=== PATIENT | male | born 1990 | race Caucasian/White ===

== ENCOUNTER 2017-05-14 08:09 | Emergency (ER) | payer SELFPAY ==
[2017-05-14 08:27] VITALS: BP 150/92
[2017-05-14] MEDS ORDERED: Ketorolac 30 MG/ML SDV IM ONE (08:35)
--- NOTE | 2017-05-14 08:37 | EDM.PDOC ---
ED HPI GENERAL MEDICAL PROBLEM - General Chief Complaint: Lower Extremity Injury/Pain Stated Complaint: KNEE PROBLEMS Time Seen by Provider: 05/14/17 08:30 Source of Information: Reports: Patient History Limitations: Reports: No Limitations - History of Present Illness INITIAL COMMENTS - FREE TEXT/NARRATIVE: Patient comes in with pain to the right knee. He has an old work injury to his right leg. He has had multiple surgeries to his right femur. He fell on it last night going up some stairs. He states he has tried some ice and tylenol to little effect. No ibuprofen. 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 [No Known Home Meds] 05/14/17 [History] Review of Systems - Review of Systems Review Of Systems: See Below Constitutional: Reports: No Symptoms Eyes: Reports: No Symptoms Ears: Reports: No Symptoms Nose: Reports: No Symptoms Mouth/Throat: Reports: No Symptoms Respiratory: Reports: No Symptoms Cardiovascular: Reports: No Symptoms GI/Abdominal: Reports: No Symptoms Genitourinary: Reports: No Symptoms Musculoskeletal: Reports: Leg Pain (right knee/thigh) Skin: Reports: No Symptoms Neurological: Reports: No Symptoms Psychiatric: Reports: No Symptoms ED EXAM, GENERAL - Physical Exam Exam: See Below Exam Limited By: No Limitations General Appearance: Alert, WD/WN, Mild Distress Eye Exam: Bilateral Eye: EOMI, PERRL Head: Atraumatic, Normocephalic Extremities: Normal Inspection, No Pedal Edema, Normal Capillary Refill, Leg Pain, Limited Range of Motion. No: Joint Swelling Neurological: Alert, Oriented, CN II-XII Intact, Normal Cognition, Normal Gait, Normal Reflexes, No Motor/Sensory Deficits Psychiatric: Normal Affect, Normal Mood Skin Exam: Warm, Dry, Intact, Normal Color, No Rash Lymphatic: No Adenopathy Course - Vital Signs Last Recorded V/S: Last Vital Signs Temp 37.6 C 05/14/17 08:10 Pulse 101 H 05/14/17 08:10 Resp 18 05/14/17 08:10 BP 150/92 H 05/14/17 08:10 Pulse Ox - Orders/Labs/Meds Orders: Active Orders 24 hr Category Date Time Status Knee Min 4V Rt [CR] Stat Exams 05/14/17 08:35 Taken Meds: Medications Discontinued Medications Generic Name Dose Route Start Last Admin Trade Name Viv PRN Reason Stop Dose Admin Ketorolac Tromethamine 30 mg 05/14/17 08:35 05/14/17 08:45 Toradol IM 05/14/17 08:36 30 mg ONETIME ONE Administration Departure - Departure Time of Disposition: 09:50 Disposition: Home, Self-Care 01 Condition: Good Clinical Impression: Right knee sprain - Discharge Information Instructions: Knee Sprain, [id number] Referrals: PCP,Not In Area [Primary Care Provider] - Forms: ED Department Discharge Additional Instructions: Rest, ice, and elevate your knee. After a few days you can use some heat to help with the pain. Your x-ray was negative for any acute fracture, no unseating of your hardware. You can alternate ibuprofen and tylenol as needed. If the pain from this persists, an MRI may be needed to rule out muscle, ligament, or tendon damage. Follow up with your primary doctor as symptoms warrant. - Problem List & Annotations (1) Right knee sprain SNOMED Code(s): 04138505 Code(s): S83.91XA - SPRAIN OF UNSPECIFIED SITE OF RIGHT KNEE, INITIAL ENCOUNTER Status: Acute Priority: Low Qualifiers: Encounter type: initial encounter Involved ligament of knee: unspecified ligament Qualified Code(s): S83.91XA - Sprain of unspecified site of right knee, initial encounter - Problem List Review Problem List Initiated/Reviewed/Updated: Yes - My Orders Last 24 Hours: My Active Orders 05/14/17 08:35 Knee Min 4V Rt [CR] Stat - Assessment/Plan Last 24 Hours: My Active Orders 05/14/17 08:35 Knee Min 4V Rt [CR] Stat Assessment:: right knee pain Plan: Rest, ice, and elevate your knee. After a few days you can use some heat to help with the pain. Your x-ray was negative for any acute fracture, no unseating of your hardware. You can alternate ibuprofen and tylenol as needed. If the pain from this persists, an MRI may be needed to rule out muscle, ligament, or tendon damage. Follow up with your primary doctor as symptoms warrant.
== END 2017-05-14 09:50 | disposition home or self-care (01) ==
LOC: VM.ED 08:09
DX: S83.91XA Sprain of unspecified site of right knee, initial encounter (principal); Z88.1 Allergy status to other antibiotic agents; W10.8XXA Fall (on) (from) other stairs and steps, initial encounter
CPT/HCPCS: 73564; 96372; 99283; J1885